=== PATIENT | male | born 2000 | race Hispanic/Latino ===

== ENCOUNTER 2022-09-22 18:27 | Emergency (ER) | payer OTHER ==
[~2022-09-22] VITALS: Ht 170.2 cm; Wt 82.6 kg
[2022-09-22 21:29] VITALS: BP 118/65
== END 2022-09-22 21:31 | disposition home or self-care (01) ==
LOC: M ED 18:27
DX: S06.0X0A Concussion without loss of consciousness, initial encounter (principal); S00.03XA Contusion of scalp, initial encounter; S16.1XXA Strain of muscle, fascia and tendon at neck level, initial encounter; Y93.68 Activity, volleyball (beach) (court); Y99.0 Civilian activity done for income or pay